=== PATIENT | female | born 1960 | race Caucasian/White ===

== ENCOUNTER 2018-08-11 16:12 | Outpatient (CLI) | payer OTHER ==
[2015-05-16 11:07] VITALS: BP 102/57
--- NOTE | 2018-08-11 19:17 | Diagnostic Imaging Report ---
LUKE MCCOLLUM ([employer]) - OP [facility] [id number] [facility].[address] [id number] Report Submission Date: Aug 11, 2018 4:58:13 PM CDT Patient Study Name: JACE COSME Date: Aug 11, 2018 4:34:23 PM CDT Modality Type: DX Gender: F Description: L SPINE 2 OR 3 VIEWS : 56 Institution: [facility] Physician: LUKE MCCOLLUM ([employer]SEMBLER) - OP Examination: Plain film lumbar spine History: LOW BACK PAIN, NO KNOWN INJURY Findings: 3 views of the lumbar spine demonstrates osteopenia. Degenerative spurring. Facet degenerative changes. No anterior compression. No soft tissue abnormalities. Impression: Osteopenia and degenerative changes. No compression deformity. If patient is experiencing neurologic symptoms, consider obtaining MRI to further evaluate. Electronically signed on Aug 11, 2018 4:58:13 PM CDT by: Ivan WOODY
== END 2018-08-11 16:30 ==
LOC: LAB 16:12
PROVIDERS: ATTEND Nurse Practitioner Family
DX: M85.88 Other specified disorders of bone density and structure, other site (principal); M47.896 Other spondylosis, lumbar region; M54.5 Low back pain; R31.21 Asymptomatic microscopic hematuria
CPT/HCPCS: 72100; 87086